=== PATIENT | female | born 1990 | race Caucasian/White ===

== ENCOUNTER 2017-02-25 01:44 | Emergency (ER) | payer BC ==
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
[2017-02-25] MEDS ORDERED: Ibuprofen 600 MG Tab PO ONE (02:41)
[2017-02-25] MEDS ORDERED: Cephalexin 500 MG Cap PO ONE (03:27)
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
== END 2017-02-25 04:17 | disposition home or self-care (01) ==
LOC: MW.ED 01:44
DX: S02.2XXA Fracture of nasal bones, initial encounter for closed fracture (principal); S09.93XA Unspecified injury of face, initial encounter; Z88.5 Allergy status to narcotic agent; Z88.6 Allergy status to analgesic agent; Y04.0XXA Assault by unarmed brawl or fight, initial encounter
CPT/HCPCS: 70160; 99283; A9270; 99284